=== PATIENT | female | born 1960 | race Caucasian/White ===

== ENCOUNTER 2016-09-22 17:06 | Emergency (ER) | payer MEDICARE, OTHER ==
[~2016-09-22] VITALS: Ht 170.2 cm; Wt 61.2 kg
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
[~2016-09-22 17:06] MED LIST: ACETAMINOPHEN PO; ALBUTEROL17 GM INH; COMBIVENT INHALER INH; DEPAKOTE ER PO; FLEXERIL PO; IBUPROFEN800 MG PO; LEVAQUIN PO; RISPERIDONE PO; TOPAMAX PO; [UNRECOGNIZED DRUG - OTHER]
== END 2016-09-22 20:25 | disposition home or self-care (01) ==
LOC: CFTX 17:06 → CED 17:06 → CFTX 19:28
DX: S33.5XXA Sprain of ligaments of lumbar spine, initial encounter (principal); S00.83XA Contusion of other part of head, initial encounter; S90.32XA Contusion of left foot, initial encounter; F17.200 Nicotine dependence, unspecified, uncomplicated; I10 Essential (primary) hypertension; J44.9 Chronic obstructive pulmonary disease, unspecified; Z88.0 Allergy status to penicillin; Z88.5 Allergy status to narcotic agent; Y04.2XXA Assault by strike against or bumped into by another person, initial encounter
CPT/HCPCS: 29405; 70486; 72100; 73630; 94640; 99284